=== PATIENT | female | born 1990 | race Caucasian/White ===

== ENCOUNTER 2016-10-12 16:05 | Emergency (ER) | payer SELFPAY ==
[~2016-10-12 16:05] MED LIST: AUGMENTIN 875-1 EAC2 PO; BACIT OP; NO HOME MEDICATION XX; NORCO 5-325 TA1 EACH PO; NORCO 5/325 TAB1 TAB PO; [UNRECOGNIZED DRUG - OTHER] OP
[2016-10-12] MEDS ORDERED: PERCOCET 5-3251 EACH PO (16:57)
[2016-10-12] MEDS ORDERED: BACTRIM DS TAB1 EAC2 PO (16:57)
== END 2016-10-12 16:55 ==
LOC: EDMED 16:05
DX: L73.9 Follicular disorder, unspecified (principal); L03.314 Cellulitis of groin; F17.200 Nicotine dependence, unspecified, uncomplicated